=== PATIENT | male | born 1940 | race Caucasian/White ===

== ENCOUNTER → 2016-10-20 | Day surgery (SDC) | payer OTHER ==
[2016-10-07 08:28] VITALS: BMI 22.0
[~2016-10-20] VITALS: Ht 172.7 cm; Wt 65.9 kg
[~2016-10-20] MED LIST: ASPCH81X PO; ATEN50TA8 PO; HYDR25TA4 PO; LIDOCAINE HCL 2% 2 ML VIAL (20MG/ML) ONE; ONDA4TAB54 PO; OXYM0.056 NAE; PHN/100 PO; PRLSR20 PO; PROB1TAB16 PO; PROPOFOL IV EMULSION 10 MG/ML 20 ML VIAL IV ONE; PSEU12TA; PSYL58.636 PO; SIMV40TA2 PO; [UNRECOGNIZED DRUG - CODE] PO
[2016-10-20 12:44] VITALS: Ht 172.7 cm; Wt 65.9 kg
[2016-10-20 12:59] VITALS: TEMP 36.5
--- NOTE | 2016-10-20 13:09 | Endo History and Physical ---
History & Physical Date of Service: Oct 20, 2016. Chief Complaint: abnormal weight loss Referring Physician: jan nugent History of Present Illness 76 yo CM who presents for EGD and colonoscopy secondary to abnormal weight loss. Past Surgical History Hx Cardiac Surgery: No Hx Internal Defibrillator: No Hx Pacemaker: No Hx Abdominal Surgery: No Hx of Implantable Prosthesis: No Hx Post-Op Nausea and Vomiting: No Hx Cancer Surgery: No Hx Thoracic Surgery: No Hx Orthopedic: No Hx Urinary Tract Surgery: No Family History None Social History Smoking Status: Never Smoker Hx Substance Use: No Hx Alcohol Use: Yes (1-2 DRINKS MONTHLY) Allergies Coded Allergies: Codeine (Verified Allergy, Mild, GI SYMPTOMS, 10/20/16) Uncoded Allergies: GRASS AND POLLEN (Allergy, Unknown, ENVIRONMENTAL ALLERGIES, 10/07/16) Current Medications Reported Home Medications Medications Dose Route/Sig Max Daily Dose Days Date Category Decongestant 12HOUR Maxim (Pseudoephedrine Hcl) 120 Mg Tab PRN 10/20/16 Reported Zocor (Simvastatin) 40 Mg Tab 40 Mg PO QPM 10/07/16 Reported Metamucil Fiber (Psyllium) 51.7 % Hector 1 Dose PO TID 10/07/16 Reported Probiotic (Probiotic Product) 1 Tab Tab 1 Tab PO QPM 10/07/16 Reported Prilosec (Omeprazole) 20 Mg Capcr 20 Mg PO QAM 10/07/16 Reported Afrin (Oxymetazoline Hcl) 0.05 % Spr 1 [place] TIKA DAILY PRN 10/07/16 Reported Phenylethylamine Hcl (Phenylethylamine Hcl (Bulk)) 1 Pow Pow 1 Dose PO DAILY PRN 10/07/16 Reported Ondansetron HCl (Ondansetron) 4 Mg Tab 1 Tab PO Q6H PRN 10/07/16 Reported Hctz (Hydrochlorothiazide) 25 Mg Tab 25 Mg PO QAM 10/07/16 Reported Dilantin (Phenytoin Sodium) 100 Mg Cap 2 Tab PO BID 10/07/16 Reported Tenormin (Atenolol) 50 Mg Tab 50 Mg PO QPM 10/07/16 Reported Aspirin Chewable (Aspirin) 81 Mg Chew 81 Mg PO QPM 10/07/16 Reported Vital Signs Weight (Kilograms): 65.91 Height (Feet): 5 Height (Inches): 8 Date Time Temp Pulse Resp B/P (MAP) Pulse Ox O2 Delivery O2 Flow Rate FiO2 10/20/16 12:59 36.5 69 16 155/84 (107) 98 Room Air Physical Exam General Appearance: WD/WN, no apparent distress Respiratory/Chest: Auscultation: breath sounds normal Cardiovascular: Heart Auscultation: RRR Abdomen: Bowel Sounds: normal Inspection & Palpation: soft, non-distended, no tenderness, guarding & rebound Assessment and Plan Assessment: 76 yo CM who presents for EGD and colonoscopy secondary to abnormal weight loss. Plan: Proceed with EGD and colonoscopy
--- NOTE | 2016-10-20 13:50 | GI REPORT ---
Procedure Date: 10/20/2016 1:13 PM Procedure: Upper GI endoscopy Indications: Weight loss Medicines: Monitored Anesthesia Care Complications: No immediate complications. Estimated Blood Loss: Estimated blood loss: none. Procedure: Pre-Anesthesia Assessment: - Prior to the procedure, a History and Physical was performed, and patient medications and allergies were reviewed. The patient's tolerance of previous anesthesia was also reviewed. The risks and benefits of the procedure and the sedation options and risks were discussed with the patient. All questions were answered, and informed consent was obtained. Prior Anticoagulants: The patient has taken aspirin, last dose was 5 days prior to procedure. ASA Grade Assessment: II - A patient with mild systemic disease. After reviewing the risks and benefits, the patient was deemed in satisfactory condition to undergo the procedure. After obtaining informed consent, the endoscope was passed under direct vision. Throughout the procedure, the patient's blood pressure, pulse, and oxygen saturations were monitored continuously. The scope was introduced through the mouth, and advanced to the second part of duodenum. The upper GI endoscopy was accomplished without difficulty. The patient tolerated the procedure well. Findings: The esophagus was normal. Localized mild inflammation characterized by erosions and erythema was found in the gastric antrum. Biopsies were taken with a cold forceps for histology. The examined duodenum was normal. Biopsies for histology were taken with a cold forceps for evaluation of celiac disease. Impression: - Normal esophagus. - Gastritis. Biopsied. - Normal examined duodenum. Biopsied. Recommendation: - Resume previous diet. - Continue present medications. - Await pathology results. - Return to primary care physician as previously scheduled. Vinny Lund, DO 10/20/2016 1:49:26 PM This report has been signed electronically. Note Initiated On: 10/20/2016 1:13 PM I attest to the content of the Intraoperative Record and orders documented therein, exceptions below
--- NOTE | 2016-10-20 13:53 | GI REPORT ---
Procedure Date: 10/20/2016 1:33 PM Procedure: Colonoscopy Indications: Weight loss Medicines: Monitored Anesthesia Care Complications: No immediate complications. Estimated Blood Loss: Estimated blood loss: none. Procedure: Pre-Anesthesia Assessment: - Prior to the procedure, a History and Physical was performed, and patient medications and allergies were reviewed. The patient's tolerance of previous anesthesia was also reviewed. The risks and benefits of the procedure and the sedation options and risks were discussed with the patient. All questions were answered, and informed consent was obtained. Prior Anticoagulants: The patient has taken aspirin, last dose was 5 days prior to procedure. ASA Grade Assessment: II - A patient with mild systemic disease. After reviewing the risks and benefits, the patient was deemed in satisfactory condition to undergo the procedure. After I obtained informed consent, the scope was passed under direct vision. Throughout the procedure, the patient's blood pressure, pulse, and oxygen saturations were monitored continuously. The scope was introduced through the anus and advanced to the terminal ileum. The colonoscopy was performed without difficulty. The patient tolerated the procedure well. The quality of the bowel preparation was good. The terminal ileum, ileocecal valve, appendiceal orifice, and rectum were photographed. Findings: A moderate amount of solid stool was found in the entire colon, interfering with visualization. Lavage of the area was performed using a large amount, resulting in clearance with fair visualization. Multiple small-mouthed diverticula were found in the sigmoid colon. Non-bleeding internal hemorrhoids were found during retroflexion. The hemorrhoids were small. Impression: - Stool in the entire examined colon. - Diverticulosis in the sigmoid colon. - Non-bleeding internal hemorrhoids. - No specimens collected. Recommendation: - Resume previous diet. - Continue present medications. - No repeat colonoscopy due to age and the absence of advanced adenomas. - Return to primary care physician as previously scheduled. Vinny Lund DO 10/20/2016 1:53:06 PM This report has been signed electronically. Note Initiated On: 10/20/2016 1:33 PM I attest to the content of the Intraoperative Record and orders documented therein, exceptions below
--- NOTE | 2016-10-20 13:59 | Discharge Instructions ---
Endoscopy Patient Instructions Date / Procedure(s) Performed Oct 20, 2016. Colonoscopy, EGD Allergy Information Coded Allergies: Codeine (Verified Allergy, Mild, GI SYMPTOMS, 10/20/16) Uncoded Allergies: GRASS AND POLLEN (Allergy, Unknown, ENVIRONMENTAL ALLERGIES, 10/07/16) Discharge Date / Findings Oct 20, 2016. EGD: Gastritis s/p biopsies, Duodenal biopsies Colonoscopy: Diverticulosis and Internal hemorrhoids Medication Instructions Stopped Medication(s): asa hctz OK to resume all medications today as prescribed Reported Home Medications Medications Dose Route/Sig Max Daily Dose Days Date Category Decongestant 12HOUR Maxim (Pseudoephedrine Hcl) 120 Mg Tab PRN 10/20/16 Reported Zocor (Simvastatin) 40 Mg Tab 40 Mg PO QPM 10/07/16 Reported Metamucil Fiber (Psyllium) 51.7 % Hector 1 Dose PO TID 10/07/16 Reported Probiotic (Probiotic Product) 1 Tab Tab 1 Tab PO QPM 10/07/16 Reported Prilosec (Omeprazole) 20 Mg Capcr 20 Mg PO QAM 10/07/16 Reported Afrin (Oxymetazoline Hcl) 0.05 % Spr 1 [place] TIKA DAILY PRN 10/07/16 Reported Phenylethylamine Hcl (Phenylethylamine Hcl (Bulk)) 1 Pow Pow 1 Dose PO DAILY PRN 10/07/16 Reported Ondansetron HCl (Ondansetron) 4 Mg Tab 1 Tab PO Q6H PRN 10/07/16 Reported Hctz (Hydrochlorothiazide) 25 Mg Tab 25 Mg PO QAM 10/07/16 Reported Dilantin (Phenytoin Sodium) 100 Mg Cap 2 Tab PO BID 10/07/16 Reported Tenormin (Atenolol) 50 Mg Tab 50 Mg PO QPM 10/07/16 Reported Aspirin Chewable (Aspirin) 81 Mg Chew 81 Mg PO QPM 10/07/16 Reported Provider Instructions Activity Restrictions - No exercising or heavy lifting for 24 hours. - Do not drink alcohol the day of the procedure. - Do not drive a car or operate machinery until the day after the procedure. - Do not make any important decisions or sign important papers in 24 hours after the procedure. Following Day: - Return to full activity which may include returning to work/school. Diet Start your diet with liquids and light foods (jello, soup, juice, toast). Then eat your usual diet if not nauseated. Treatment For Common After Affects For mild abdominal pain, bloating, or excessive gas: - Rest - Eat lightly - Lie on right side Follow-Up Information Follow-up with jan nugent as scheduled Anesthesia Information What You Should Know You have had a procedure that required some medicine to reduce anxiety and discomfort. This treatment is called moderate sedation. After receiving the treatment, you may be sleepy, but you will be able to breathe on your own. The effects of the treatment may last for several hours. Follow these instructions along with Activity/Diet recommendations noted above: * Do NOT do anything where dizziness or clumsiness would be dangerous. * Rest quietly at home today, then you can be up and about tomorrow. * Have a responsible person stay with you the rest of today. * You may have had an I.V. today. If so, you may take the dressing off later today. Recommendations Call your doctor if: * Trouble breathing * Continuous vomiting for more than 24 hours * Temperature above 101 degrees * Severe abdominal pain or bloating * Pain not relieved by pain medicine ordered * There is increased drainage or redness from any incision * A large amount of rectal bleeding greater than 2-3 tablespoons. (If you had a polyp/s removed or have hemorrhoids, a small amount of blood - from the rectum is to be expected.) * You have any unanswered questions or concerns. IN THE EVENT OF A SERIOUS EMERGENCY, GO TO THE NEAREST EMERGENCY ROOM Your discharge instructions were prepared by provider Vinny Lund. Patient Instructions Signature Page Kem Chun Patient (or Guardian) Signature/Date: I have read and understand the instructions given to me by my caregivers. Caregiver/RN/Doctor Signature/Date: The above-named patient and/or guardian has received patient instructions on this date. + Original Patient Signature Page (only) stays with chart. Please make copy for patient.
[2016-10-20 14:16] VITALS: BP 126/77; PULSE 67; O2SAT 97
--- NOTE | 2016-10-20 14:20 | Anesthesiology Progress Note ---
Anesthesia Post Op Note Date & Time Oct 20, 2016 at 14:20 Vital Signs Pain Intensity: 0 Vital Signs Past 12 Hours Date Time Temp Pulse Resp B/P (MAP) Pulse Ox O2 Delivery O2 Flow Rate FiO2 10/20/16 14:16 67 20 126/77 (93) 97 Room Air 10/20/16 14:01 73 18 124/64 (84) 97 Room Air 10/20/16 13:46 68 16 99/60 (73) 98 Room Air 10/20/16 12:59 36.5 69 16 155/84 (107) 98 Room Air Notes Mental Status: alert / awake / arousable, participated in evaluation Pt Amnestic to Procedure: Yes Nausea / Vomiting: adequately controlled Pain: adequately controlled Airway Patency, RR, SpO2: stable & adequate BP & HR: stable & adequate Hydration State: stable & adequate Anesthetic Complications: no major complications apparent
== END | disposition home or self-care (01) ==
LOC: C.GI 11:50
PROVIDERS: ATTEND Internal Medicine
DX: R63.4 Abnormal weight loss (principal); K57.90 Diverticulosis of intestine, part unspecified, without perforation or abscess without bleeding; K64.8 Other hemorrhoids; K29.70 Gastritis, unspecified, without bleeding; Z98.41 Cataract extraction status, right eye; Z98.42 Cataract extraction status, left eye; Z90.89 Acquired absence of other organs; I10 Essential (primary) hypertension; E78.5 Hyperlipidemia, unspecified; K21.9 Gastro-esophageal reflux disease without esophagitis; Z85.820 Personal history of malignant melanoma of skin

== ENCOUNTER → 2016-11-12 | Outpatient (CLI) | payer OTHER ==
[~2016-11-12] MED LIST changes: -LIDOCAINE HCL 2% 2 ML VIAL (20MG/ML) ONE; -PROPOFOL IV EMULSION 10 MG/ML 20 ML VIAL IV ONE
[2016-11-12 14:14] LABS: URINE APPEARANCE CLEAR (CLEAR); URINE BILIRUBIN NEG (NEG); URINE COLOR YELLOW; URINE EPITHELIAL CELL AUTO 0-5 /lpf (0-5); URINE NITRITE NEG (NEG); UROBILINOGEN NEG (NEG); ZZUR CULT IF INDIC CLEAN CATCH NO
[2016-11-12 14:28] LABS: BASO % 0.2 %; BASO ABS # 0.01 K/uL (0-0.2); COMPLETE YES; EOS % 1.2 %; HEMATOCRIT 39.5 % (42-52); IG% 0.2 %; LYMPH % 17.4 %; LYMPH ABS # 1.01 K/uL (1.2-3.4); MEAN CELL VOLUME 90.2 fL (80-100); MEAN CORPUSCULAR HEMOGLOBIN 30.6 pg (25-34); MEAN CORPUSCULAR HGB CONC 33.9 g/dl (32-36); MEAN PLATELET VOLUME 10.7 fL (7.4-10.4); MONO % 7.9 %; NEUT % 73.1 %; PLATELET COUNT 272 K/uL (130-400); RED BLOOD COUNT 4.38 M/uL (4.7-6.1); WHITE BLOOD COUNT 5.79 K/uL (4.8-10.8)
[2016-11-12 14:30] LABS: MANUAL MICROSCOPIC REQUIRED? NO; REVIEW REQ? NO
[2016-11-12 14:43] LABS: ALT/SGPT 21 U/L (12-78); AST/SGOT 16 U/L (15-37); BLOOD UREA NITROGEN 14 mg/dl (7-18); BUN/CREATININE RATIO 18.4 (10-20); CARBON DIOXIDE 32 mmol/L (21-32); CHLORIDE 98 mmol/L (98-107); CREATININE 0.76 mg/dl (0.60-1.40); GLUCOSE 126 mg/dl (70-99); POTASSIUM 3.2 mmol/L (3.5-5.1); SODIUM 136 mmol/L (136-145)
[2016-11-12 14:54] LABS: ALB/GLOB RATIO 1.4 (0.9-2); ALKALINE PHOSPHATASE 114 U/L (45-117)
== END | disposition home or self-care (01) ==
LOC: C.LABMFLN 09:12
PROVIDERS: ATTEND Family Medicine
DX: R63.4 Abnormal weight loss (principal); R10.30 Lower abdominal pain, unspecified; Z79.899 Other long term (current) drug therapy

== ENCOUNTER → 2016-11-16 | Outpatient (CLI) | payer OTHER ==
[~2016-11-16] MED LIST changes: +OPTIRAY 320 IV PRN
--- NOTE | 2016-11-16 16:28 | DIAGNOSTIC IMAGING REPORT ---
ABDOMEN AND PELVIS CT WITH IV AND ORAL CONTRAST CT DOSE: 480.37 mGycm HISTORY: R63.4 Abnormal weight [id number] Lower abdominal [id number] TECHNIQUE: Multiaxial CT images of the abdomen and pelvis were performed following the use of intravenous and oral contrast. A dose lowering technique was utilized adhering to the principles of ALARA. COMPARISON STUDY: None. FINDINGS: The lung bases are clear. Levoscoliosis of the lumbar spine. The liver, gallbladder, spleen, pancreas, right kidney are unremarkable. Symmetric bilateral adrenal gland thickening likely represents age-related hyperplasia. A few subcentimeter hypodense lesions within the left kidney which are technically too small to characterize. These measure up to 9 mm. There are are peripelvic renal cysts. No hydronephrosis. No retroperitoneal lymphadenopathy. The prostate is mildly enlarged. Normal bladder. No bowel wall thickening or obstruction. Colonic diverticulosis. Normal appendix. IMPRESSION: 1. No bowel wall thickening or obstruction. 2. Colonic diverticulosis. 3. Normal appendix. 4. Mildly enlarged prostate. Electronically signed by: Shahram Fernando M.D. 11/16/2016 4:27 PM Dictated Date/Time: 11/16/2016 4:16 PM
== END | disposition home or self-care (01) ==
LOC: C.CTS 13:05
PROVIDERS: ATTEND Family Medicine
DX: R63.4 Abnormal weight loss (principal); R10.30 Lower abdominal pain, unspecified; K57.30 Diverticulosis of large intestine without perforation or abscess without bleeding; N40.0 Benign prostatic hyperplasia without lower urinary tract symptoms

== ENCOUNTER → 2016-11-23 | Outpatient (CLI) | payer OTHER ==
[~2016-11-23] MED LIST changes: -OPTIRAY 320 IV PRN
[2016-11-23 14:08] LABS: BLOOD UREA NITROGEN 15 mg/dl (7-18); BUN/CREATININE RATIO 22.2 (10-20); CALCIUM 8.4 mg/dl (8.5-10.1); CARBON DIOXIDE 28 mmol/L (21-32); CHLORIDE 96 mmol/L (98-107); CREATININE 0.66 mg/dl (0.60-1.40); GLUCOSE 88 mg/dl (70-99); POTASSIUM 3.9 mmol/L (3.5-5.1); SODIUM 133 mmol/L (136-145)
== END | disposition home or self-care (01) ==
LOC: C.LABMFLN 10:23
PROVIDERS: ATTEND Family Medicine
DX: E87.6 Hypokalemia (principal); N40.1 Benign prostatic hyperplasia with lower urinary tract symptoms

== ENCOUNTER → 2016-12-02 | Outpatient (CLI) | payer OTHER | END | disposition home or self-care (01) | LOC: C.LABMFLN 14:20 | PROVIDERS: ATTEND Urology | DX: R31.29 Other microscopic hematuria (principal) ==

== ENCOUNTER → 2017-01-04 | Outpatient (CLI) | payer OTHER | END | disposition home or self-care (01) | LOC: C.LABMFLN 16:27 | PROVIDERS: ATTEND Psychiatry & Neurology Neurology | DX: Z86.69 Personal history of other diseases of the nervous system and sense organs (principal) ==

== ENCOUNTER → 2017-01-18 | Outpatient (CLI) | payer OTHER | END | disposition home or self-care (01) | LOC: C.LABMFLN 16:17 | PROVIDERS: ATTEND Family Medicine | DX: Z79.899 Other long term (current) drug therapy (principal) ==